=== PATIENT | female | born 1980 | race African-American/Black ===

== ENCOUNTER 2022-10-14 14:16 | Emergency (ER) | payer OTHER ==
[~2022-10-14] VITALS: Ht 162.6 cm; Wt 75.0 kg
[2022-10-14] MEDS ORDERED: MECLIZINE 25MG TABLET PO ONE (14:45)
[2022-10-14] MEDS ORDERED: ACETAMINOPHEN 325MG TABLET PO ONE (14:45)
[2022-10-14 16:33] LABS: BASOPHILS % 0.4 % (0.0-2.0); EOSINOPHILS % 0.1 % (0.0-5.0); HEMATOCRIT. 39.6 % (36.0-48.0); LYMPHOCYTES % 32.2 % (20.0-50.0); MEAN CORPUSCULAR HEMOGLOBIN 23.6 pg (28.0-32.0); MEAN CORPUSCULAR VOLUME 71.9 fL (81.0-99.0); MONOCYTES % 4.8 % (2.0-8.0); NEUTROPHILS % 62.5 % (40.0-76.0); PLATELET 209 x1000/uL (130-400); RED BLOOD CELL COUNT 5.51 mill/uL (4.2-5.4); RED CELL DISTRIBUTION WIDTH 19.6 % (11.6-14.6)
[2022-10-14] MEDS ORDERED: ACETAMINOPHEN 325MG TABLET ONE (16:37)
[2022-10-14 16:40] LABS: CHLORIDE 103 mEq/L (98-107)
[2022-10-14 16:49] LABS: HCG SCREEN NEGATIVE
[2022-10-14 16:51] LABS: ETHANOL BLOOD < 10 mg/dL
[2022-10-14 17:03] LABS: *AMPHETAMINES SCREEN URINE NEGATIVE (NEGATIVE); *BARBITURATES SCREEN URINE NEGATIVE (NEGATIVE); *BENZODIAZEPINES SCREEN URINE NEGATIVE (NEGATIVE); *COCAINE SCREEN URINE NEGATIVE (NEGATIVE); CANNABINOID URINE SCREEN NEGATIVE (NEGATIVE); METHADONE URINE SCREEN NEGATIVE (NEGATIVE); OPIATES URINE SCREEN NEGATIVE (NEGATIVE); PHENCYCLIDINE URINE SCREEN NEGATIVE (NEGATIVE)
[2022-10-14] MEDS ORDERED: ASPI-1497 MT (18:55)
[2022-10-14] MEDS ORDERED: MECL-159 MT (18:55)
[2022-10-14] MEDS ORDERED: ASPIRIN 325MG EC TABLET PO ONE (19:30)
[2022-10-14] MEDS ORDERED: ASPIRIN 325MG EC TABLET PO SCH (21:30)
[2022-10-14 21:57] VITALS: BP 156/98
== END 2022-10-14 22:02 | disposition home or self-care (01) ==
LOC: ER 14:37
DX: R07.9 Chest pain, unspecified (principal); R42 Dizziness and giddiness; I10 Essential (primary) hypertension
CPT/HCPCS: 36415; 70496; 70498; 71045; 80053; 80305; 80320; 83880; 84484; 84703; 85025; 93005; 99285; J8597; G0480